=== PATIENT | male | born 1985 | race American Indian/Alaskan Native ===

== ENCOUNTER 2021-07-21 03:52 | Emergency (ER) | payer SELFPAY ==
[2021-07-21 03:58] VITALS: BP 126/83
== END 2021-07-21 09:07 | disposition left against medical advice (07) ==
LOC: ED 03:52
DX: Z00.00 Encounter for general adult medical examination without abnormal findings (principal); Z53.21 Procedure and treatment not carried out due to patient leaving prior to being seen by health care provider

== ENCOUNTER 2021-07-22 04:18 | Emergency (ER) | payer SELFPAY ==
[2021-07-22 04:29] VITALS: BP 160/90
[2021-07-22] MEDS ORDERED: FAMOTIDINE 20 MG TAB PO ONE (04:36)
[2021-07-22] MEDS ORDERED: ONDANSETRON 4 MG ODT TAB PO ONE (04:36)
--- NOTE | 2021-07-22 04:43 | Emergency Department Report ---
ED N/V/D HPI - General Chief complaint: Nausea/Vomiting/Diarrhea Stated complaint: FEELING SICK Source: patient Mode of arrival: Ambulatory Limitations: No Limitations - History of Present Illness Initial comments: Patient is a 35-year-old male who is homeless and with no past medical history, who presented to the ED with complaint of nausea for the last 2 hours. Patient states that he continues to experience a lot of saliva drooling out of his mouth due to persistent nausea. Patient denies vomiting, abdominal pain, diarrhea, dysuria, fever, chills, cough, sore throat, chest pain, dizziness, headache or back pain. MD complaint: nausea -: Sudden, hour(s) (2) Associated Abdominal Pain: No Radiation: none Severity: mild Pain Scale: 1 Quality: dull Consistency: constant Improves with: none Worsens with: none Associated Symptoms: denies other symptoms. denies: myalgias, chest pain, cough, diaphoresis, fever/chills, headaches, loss of appetite, malaise, rash, dysuria, shortness of breath, syncope, other - Related Data Previous Rx's Medication Instructions Recorded Last Taken Type Famotidine [Pepcid] 20 mg PO BID #30 tablet 07/22/21 Unknown Rx Promethazine [Phenergan] 25 mg PO Q8HR PRN #20 tab 07/22/21 Unknown Rx Allergies Allergy/AdvReac Type Severity Reaction Status Date / Time No Known Allergies Allergy Verified 07/21/21 03:57 ED Review of Systems ROS: Stated complaint: FEELING SICK Other details as noted in HPI Constitutional: denies: chills, fever Eyes: denies: eye pain, eye discharge, vision change ENT: denies: ear pain, throat pain Respiratory: denies: cough, shortness of breath, wheezing Cardiovascular: denies: chest pain, palpitations Endocrine: no symptoms reported Gastrointestinal: nausea. denies: abdominal pain, vomiting, diarrhea Genitourinary: denies: urgency, dysuria Musculoskeletal: denies: back pain, joint swelling, arthralgia Skin: denies: rash, lesions Neurological: denies: headache, weakness, paresthesias Psychiatric: denies: anxiety, depression Hematological/Lymphatic: denies: easy bleeding, easy bruising ED Past Medical Hx - Past Medical History Previous Medical History?: No - Surgical History Past Surgical History?: No - Social History Smoking Status: Current Every Day Smoker Substance Use Type: None - Medications Home Medications: Home Medications Medication Instructions Recorded Confirmed Last Taken Type Famotidine [Pepcid] 20 mg PO BID #30 tablet 07/22/21 Unknown Rx Promethazine [Phenergan] 25 mg PO Q8HR PRN #20 tab 07/22/21 Unknown Rx ED Physical Exam - General Limitations: No Limitations General appearance: alert, in no apparent distress - Head Head exam: Present: atraumatic, normocephalic, normal inspection - Eye Eye exam: Present: normal appearance, PERRL, EOMI Pupils: Present: normal accommodation - ENT ENT exam: Present: normal exam, normal orophraynx, mucous membranes moist, TM's normal bilaterally, normal external ear exam - Neck Neck exam: Present: normal inspection, full ROM - Respiratory Respiratory exam: Present: normal lung sounds bilaterally. Absent: respiratory distress, wheezes, rales, rhonchi, chest wall tenderness, accessory muscle use, decreased breath sounds, prolonged expiratory - Cardiovascular Cardiovascular Exam: Present: regular rate, normal rhythm, normal heart sounds. Absent: systolic murmur, diastolic murmur, rubs, gallop - GI/Abdominal GI/Abdominal exam: Present: soft, normal bowel sounds. Absent: tenderness, guarding, rebound, hyperactive bowel sounds, hypoactive bowel sounds, organomegaly - Extremities Exam Extremities exam: Present: normal inspection, full ROM, normal capillary refill - Back Exam Back exam: Present: normal inspection, full ROM - Neurological Exam Neurological exam: Present: alert, oriented X3, CN II-XII intact, normal gait, reflexes normal - Psychiatric Psychiatric exam: Present: normal affect, normal mood - Skin Skin exam: Present: warm, dry, intact, normal color. Absent: rash ED Course Vital Signs 07/22/21 04:24 Temperature 98.4 F Pulse Rate 96 H Respiratory 18 Rate Blood Pressure 160/90 O2 Sat by Pulse 96 Oximetry ED Medical Decision Making - Medical Decision Making This is a 35-year-old male who is homeless and with no past medical history, who presented to the ED with complaint of nausea for the last 2 hours. Patient states that he continues to experience a lot of saliva drooling out of his mouth due to persistent nausea. Patient denies vomiting, abdominal pain, diarrhea, dysuria, fever, chills, cough, sore throat, chest pain, dizziness, headache or back pain. - Differential Diagnosis Viral gastroenteritis; viral syndrome; GERD Critical care attestation.: If time is entered above; I have spent that time in minutes in the direct care of this critically ill patient, excluding procedure time. ED Disposition Clinical Impression: Nausea in adult patient, Acute viral syndrome Disposition: 01 HOME / SELF CARE / HOMELESS Is pt being admited?: No Does the pt Need Aspirin: No Condition: Stable Instructions: Nausea, Adult, [id number], Viral Illness, Adult Additional Instructions: Take medication as needed for nausea and vomiting, drink plenty fluids and follow-up with your primary care physician in 7 to 10 days for reevaluation. Return to the ED immediately if symptoms get worse. Prescriptions: Famotidine [Pepcid] 20 mg PO BID #30 tablet Promethazine [Phenergan] 25 mg PO Q8HR PRN #20 tab PRN Reason: Nausea Referrals: [facility] [Provider Group] - 7-10 days Time of Disposition: 04:42 Print Language: JORDANIAN
== END 2021-07-22 04:58 | disposition home or self-care (01) ==
LOC: ED 04:18
DX: R11.0 Nausea (principal); B34.9 Viral infection, unspecified; F17.200 Nicotine dependence, unspecified, uncomplicated
CPT/HCPCS: 99282; J3490; Q0162

== ENCOUNTER 2021-07-26 05:18 | Emergency (ER) | payer SELFPAY ==
[2021-07-26] MEDS ORDERED: SODIUM CHLORIDE 0.9% 1000 ML 1,000 ML IV ONE (06:33)
[2021-07-26] MEDS ORDERED: ZIPRASIDONE MESYLATE 20 MG VIAL IM PRN (06:40)
[2021-07-26] MEDS ORDERED: diphenhydrAMINE 50 MG/ML VIAL IV ONE (06:42)
--- NOTE | 2021-07-26 06:45 | Emergency Department Report ---
HPI - General Chief Complaint: Anxiety Time Seen by Provider: 07/26/21 06:32 - HPI HPI: MSE 1 The patient is a 35-year-old male present with a chief complaint of paranoia. Patient states she has been paranoid for the past 3 months and also has had emanuel tory and visual hallucinations. Patient states he has a history of PTSD anxiety and depression. Patient was reportedly brought in by warm for cement for his paranoia. Patient denies suicidal homicidal ideation. Patient admits to daily alcohol consumption and cocaine use. When asked what the voices are saying the patient does not respond. When asked what type of visual hallucinations he is having the patient states he sees "black images." ED Past Medical Hx - Past Medical History Previous Medical History?: Yes Hx Psychiatric Treatment: Yes (paranoid, PTSD, anxiety, depression) - Surgical History Past Surgical History?: No Additional Surgical History: Right wrist - Family History Family history: no significant - Social History Smoking Status: Current Every Day Smoker (1/2 pack/day) Substance Use Type: Alcohol (Daily), Cocaine - Medications Home Medications: Home Medications Medication Instructions Recorded Confirmed Last Taken Type Famotidine [Pepcid] 20 mg PO BID #30 tablet 07/22/21 Unknown Rx Promethazine [Phenergan] 25 mg PO Q8HR PRN #20 tab 07/22/21 Unknown Rx ED Review of Systems ROS: Stated complaint: PARANOID Other details as noted in HPI Constitutional: no symptoms reported Eyes: denies: eye pain ENT: denies: throat pain Respiratory: no symptoms reported Cardiovascular: denies: chest pain Endocrine: no symptoms reported Gastrointestinal: denies: abdominal pain Genitourinary: denies: dysuria Musculoskeletal: denies: back pain Neurological: denies: headache Psychiatric: auditory hallucinations, visual hallucinations, other (Paranoia). denies: homicidal thoughts, suicidal thoughts Physical Exam - Physical Exam Vital Signs: Vital Signs 07/26/21 05:41 Temperature 97.9 F Pulse Rate 116 H Respiratory 18 Rate Blood Pressure 164/91 [Right] O2 Sat by Pulse 97 Oximetry Physical Exam: GENERAL: The patient is well-developed well-nourished male sitting in chair not appearing to be in acute distress but anxious and continuing to look out of the door in a paranoid fashion. [] HEENT: Normocephalic. Atraumatic. Extraocular motions are intact. Patient has moist mucous membranes. NECK: Supple. Trachea midline CHEST/LUNGS: Clear to auscultation. There is no respiratory distress noted. HEART/CARDIOVASCULAR: Regular. There is no tachycardia. There is no gallop rub or murmur. ABDOMEN:There is no abdominal distention. SKIN: There is no rash. There is no edema. There is no diaphoresis. NEURO: The patient is awake, alert, and oriented. The patient is cooperative. The patient has no focal neurologic deficits. The patient has normal speech. GCS 15 MUSCULOSKELETAL: There is no evidence of acute injury. ED Course Vital Signs 07/26/21 05:41 Temperature 97.9 F Pulse Rate 116 H Respiratory 18 Rate Blood Pressure 164/91 [Right] O2 Sat by Pulse 97 Oximetry ED Medical Decision Making - Differential Diagnosis Substance abuse, schizophrenia, Critical care attestation.: If time is entered above; I have spent that time in minutes in the direct care of this critically ill patient, excluding procedure time. ED Disposition Condition: Stable
[2021-07-26] MEDS ORDERED: WATER FOR INJ Sterile (PF) 10 ML ONE (07:33)
[2021-07-26 07:49] LABS: Alanine Aminotransferase 14 units/L (7-56); Albumin 3.3 g/dL (3.9-5); BUN/Creatinine Ratio 16; Blood Urea Nitrogen 13 mg/dL (9-20); Calcium 6.3 mg/dL (8.4-10.2); Hemolysis Index 22
[2021-07-26] MEDS ORDERED: POTASSIUM CHLORIDE ER 20 MEQ TAB PO ONE (08:41)
--- NOTE | 2021-07-26 11:19 | Consultation ---
History of Present Illness - Reason for Consult Consult date: 07/26/21 Reason for consult: psychosis - History of Present Psychiatric Illness The patient is a 35y/o male patient who presented to the ER for psychosis; including paranoia and hallucinations. During my evaluation, the patient was able to tell me his name. Other than that, he sort of just moved around and shifted back and forth in between dozing off. The nurse said he had been given Geodon. REVIEW OF SYSTEMS Unable to assess MENTAL STATUS EXAMINATION Unable to assess Assessment (1) Acute Psychosis Current Visit: Yes Status: Acute Treatment Plan 1013 RIsperidone 0.5mg po BID Trazodone 50mg po qhs Agree with prn Geodon order Medical: per primary Disposition: Recommend acute psychiatric inpatient treatment Will follow. Thanks Case staffed with Dr. Hernandez. Medications and Allergies Allergies Allergy/AdvReac Type Severity Reaction Status Date / Time No Known Allergies Allergy Verified 07/21/21 03:57 Home Medications Medication Instructions Recorded Confirmed Last Taken Type Famotidine [Pepcid] 20 mg PO BID #30 tablet 07/22/21 Unknown Rx Promethazine [Phenergan] 25 mg PO Q8HR PRN #20 tab 07/22/21 Unknown Rx Active Meds: Active Medications Ziprasidone (Ziprasidone Mesylate 20 Mg Vial) 10 mg IM Q2H PRN PRN Reason: Agitation Last Admin: 07/26/21 07:41 Dose: 10 mg Mental Status Exam - Vital signs Last Vital Signs Temp 97.9 F 07/26/21 05:41 Pulse 116 H 07/26/21 05:41 Resp 18 07/26/21 05:41 BP 164/91 07/26/21 05:41 Pulse Ox 97 07/26/21 05:41 Results Result Diagrams: 07/26/21 07:24 Abnormal lab results 07/26/21 Range/Units 07:24 Potassium 3.1 L (3.6-5.0) mmol/L Chloride 113.5 H (98-107) mmol/L Carbon Dioxide 15 L (22-30) mmol/L Calcium 6.3 L (8.4-10.2) mg/dL Total Protein 5.7 L (6.3-8.2) g/dL Albumin 3.3 L (3.9-5) g/dL All other labs normal.
[2021-07-26] MEDS: risperiDONE 0.25 MG TAB PO SCH ×2 (11:53→22:45)
[2021-07-26 19:09] LABS: Bilirubin,Urine NEG (Negative); Blood,Urine NEG (Negative); Color,Urine Yellow (Yellow); Mucus,Urine 3+ /HPF; Urobilinogen,Urine < 2.0 mg/dL (<2.0)
[2021-07-26 19:10] LABS: Benzodiazepines Screen,Urine Negative; Methadone Screen,Urine Negative; Opiate Screen,Urine Negative
[2021-07-26 19:32] LABS: Amphetamine Screen,Urine Positive; Cannabinoid Screen,Urine Positive; Cocaine Screen,Urine Positive
[2021-07-26 21:46] VITALS: BP 144/71
[2021-07-26] MEDS ORDERED: traZODone 50 MG TAB PO SCH (22:00)
[2021-07-27 05:15] LABS: Basophils % (Auto) 0.4 % (0.0-1.8); Hematocrit 45.9 % (35.5-45.6); Hemoglobin 15.1 gm/dl (11.8-15.2); Lymphocytes # (Auto) 1.8 K/mm3 (1.2-5.4); Lymphocytes % (Auto) 48.6 % (13.4-35.0); Mean Corpuscular HGB Conc 33 % (32-34); Mean Corpuscular Volume 89 fl (84-94); Monocytes # (Auto) 0.5 K/mm3 (0.0-0.8); Monocytes % (Auto) 13.6 % (0.0-7.3); Platelet Count 233 K/mm3 (140-440); Red Blood Count 5.19 M/mm3 (3.65-5.03); Red Cell Distribution Width 15.3 % (13.2-15.2)
--- NOTE | 2021-07-27 09:50 | Progress Note ---
Subjective - Reason for Consult Consult date: 07/27/21 Reason for consult: SI - Chief Complaint Chief complaint: The patient was seen today. He verbalizes today that he feels good. He says "you want the truth?" The patient says "I was at a alliance party and doing cocaine. I started feeling like people were after me." The patient then says "and meth too." He says "but I'm good now." She denies SI/HI, or any fear of endangerment at present. He says at times he sees "shadows." The patient denies seeing anything that makes him feel threatened in nature. REVIEW OF SYSTEMS Unable to assess MENTAL STATUS EXAMINATION Unable to assess Assessment (1) Acute Psychosis Current Visit: Yes Status: Acute Treatment Plan d/c 1013 RIsperidone 0.5mg po BID Trazodone 50mg po qhs Medical: per primary Disposition: Do not recommend acute psychiatric inpatient treatment. The patient understands that if SI/HI or any fear of endangerment are to arise he is to seek immediate assistance The technology training associate to further discuss safety plan The patient to abstain from all illicit drug use He is to follow up with outpatient psych in 7 to 14 days upon discharge Will sign off. Thanks Case staffed with Dr. Hernandez. Mental Status Exam - Vital signs Last Vital Signs Temp 98.3 F 07/26/21 21:45 Pulse 88 07/26/21 21:45 Resp 18 07/27/21 02:29 BP 144/71 07/26/21 21:45 Pulse Ox 96 07/27/21 02:29
--- NOTE | 2021-07-27 09:59 | Emergency Department Report ---
Blank Doc - Documentation Documentation: This morning, patient is not suicidal or homicidal. There is no evidence of a cute delusion or psychosis. Patient had been medically cleared previously. Patient was seen by psychiatric services. It was not felt that admission to a psychiatric facility was appropriate or indicated. Patient was cleared for discharge. Follow-up with your PCP would be recommended.
== END 2021-07-27 12:20 | disposition home or self-care (01) ==
LOC: ED 05:18
DX: F22 Delusional disorders (principal); Z98.890 Other specified postprocedural states; F17.200 Nicotine dependence, unspecified, uncomplicated
CPT/HCPCS: 36415; 80053; 80307; 81001; 85025; 96372; 96374; 99284; J1200; J3486; J7030; 80320; Q0162; G0480

== ENCOUNTER 2021-09-11 01:56 | Emergency (ER) | payer SELFPAY ==
[2021-09-11] MEDS ORDERED: ZIPRASIDONE MESYLATE 20 MG VIAL IM ONE (02:19)
[2021-09-11 02:53] LABS: Basophils % (Auto) 0.6 % (0.0-1.8); Eosinophils % (Auto) 0.5 % (0.0-4.3); Hematocrit 42.8 % (35.5-45.6); Hemoglobin 14.5 gm/dl (11.8-15.2); Lymphocytes # (Auto) 1.8 K/mm3 (1.2-5.4); Lymphocytes % (Auto) 28.6 % (13.4-35.0); Mean Corpuscular HGB Conc 34 % (32-34); Mean Corpuscular Volume 86 fl (84-94); Monocytes # (Auto) 0.6 K/mm3 (0.0-0.8); Platelet Count 246 K/mm3 (140-440); Red Blood Count 4.98 M/mm3 (3.65-5.03); Red Cell Distribution Width 13.8 % (13.2-15.2)
[2021-09-11] MEDS: diphenhydrAMINE 50 MG/ML VIAL IM ONE ×2 (03:00)
[2021-09-11 03:12] LABS: BUN/Creatinine Ratio 22; Blood Urea Nitrogen 20 mg/dL (9-20); Calcium 9.1 mg/dL (8.4-10.2); Hemolysis Index 38
[2021-09-11] MEDS ORDERED: POTASSIUM CHLORIDE ER 20 MEQ TAB PO ONE ×2 (03:32→22:00)
--- NOTE | 2021-09-11 03:35 | Emergency Department Report ---
ED Psych HPI - General Chief Complaint: Psych Stated Complaint: MEGAN EVAL Time Seen by Provider: 09/11/21 02:18 Source: patient Mode of arrival: Ambulatory Limitations: Other (Psychosis) - History of Present Illness Initial Comments: 35-year-old male the past medical history schizophrenia presents to the hospital complaining of acute psychosis. Patient's been noncompliant with his meds for "a while". Patient appears agitated and responding to internal stimuli. Denies physical complaints. He denies suicidal or homicidal ideation. Patient desires to go to [facility]. Patient initially agitated and somewhat combative and appeared to be noncompliant. He did eventually calm down and agreed to be compliant with blood draw and treatment. - Related Data Previous Rx's Medication Instructions Recorded Last Taken Type Famotidine [Pepcid] 20 mg PO BID #30 tablet 07/22/21 Unknown Rx Promethazine [Phenergan] 25 mg PO Q8HR PRN #20 tab 07/22/21 Unknown Rx risperiDONE [RisperDAL] 0.5 mg PO BID #60 07/27/21 Unknown Rx traZODone [Desyrel] 50 mg PO QHS #30 tab 07/27/21 Unknown Rx Allergies Allergy/AdvReac Type Severity Reaction Status Date / Time No Known Allergies Allergy Verified 07/21/21 03:57 ED Review of Systems ROS: Stated complaint: MH EVAL Other details as noted in HPI Comment: All other systems reviewed and negative ED Past Medical Hx - Past Medical History Hx Psychiatric Treatment: Yes (paranoid, PTSD, anxiety, depression) - Surgical History Additional Surgical History: Right wrist - Social History Smoking Status: Never Smoker Substance Use Type: None - Medications Home Medications: Home Medications Medication Instructions Recorded Confirmed Last Taken Type Famotidine [Pepcid] 20 mg PO BID #30 tablet 07/22/21 Unknown Rx Promethazine [Phenergan] 25 mg PO Q8HR PRN #20 tab 07/22/21 Unknown Rx risperiDONE [RisperDAL] 0.5 mg PO BID #60 07/27/21 Unknown Rx traZODone [Desyrel] 50 mg PO QHS #30 tab 07/27/21 Unknown Rx ED Physical Exam - General Limitations: No Limitations - Other Other exam information: General: No acute distress Head: Atraumatic Eyes: normal appearance ENT: Moist mucous membranes Neck: Normal appearance, no midline tenderness Chest: Clear to auscultation bilaterally CV: Regular rate and rhythm Abdomen: Soft, normal bowel sounds, nontender, nondistended, no rebound or guarding Back: Normal inspection Extremity: Normal inspection, full range of motion Neuro: Alert O x 3, no facial asymmetry, speech clear, no gross motor sensory deficit Psych: Poor eye contact, intermittent in response to questions, responding to internal stimuli Skin: No rash ED Course Vital Signs 09/11/21 02:46 Temperature 98 F Pulse Rate 101 H Respiratory 18 Rate Blood Pressure 135/75 Blood Pressure 135/75 [Left] O2 Sat by Pulse 99 Oximetry ED Medical Decision Making - Lab Data Result diagrams: 09/11/21 02:38 09/11/21 02:38 Lab Results 09/11/21 09/11/21 09/11/21 Range/Units 02:38 02:38 02:38 WBC 6.3 (4.5-11.0) K/mm3 RBC 4.98 (3.65-5.03) M/mm3 Hgb 14.5 (11.8-15.2) gm/dl Hct 42.8 (35.5-45.6) % MCV 86 (84-94) fl MCH 29 (28-32) pg MCHC 34 (32-34) % RDW 13.8 (13.2-15.2) % Plt Count 246 (140-440) K/mm3 Lymph % (Auto) 28.6 (13.4-35.0) % [place] % (Auto) 10.0 H (0.0-7.3) % Eos % (Auto) 0.5 (0.0-4.3) % Baso % (Auto) 0.6 (0.0-1.8) % Lymph # (Auto) 1.8 (1.2-5.4) K/mm3 [place] # (Auto) 0.6 (0.0-0.8) K/mm3 Eos # (Auto) 0.0 (0.0-0.4) K/mm3 Baso # (Auto) 0.0 (0.0-0.1) K/mm3 Seg Neutrophils % 60.3 (40.0-70.0) % Seg Neutrophils # 3.8 (1.8-7.7) K/mm3 Sodium 133 L (137-145) mmol/L Potassium 3.4 L (3.6-5.0) mmol/L Chloride 96.8 L (98-107) mmol/L Carbon Dioxide 23 (22-30) mmol/L Anion Gap 17 mmol/L BUN 20 (9-20) mg/dL Creatinine 0.9 (0.8-1.3) mg/dL Estimated GFR > 60 ml/min BUN/Creatinine Ratio 22 % Glucose 166 H (75-100) mg/dL Calcium 9.1 (8.4-10.2) mg/dL Salicylates < 0.3 L (2.8-20.0) mg/dL Acetaminophen (10.0-30.0) ug/mL Plasma/Serum Alcohol (0-0.07) % 09/11/21 09/11/21 Range/Units 02:38 02:38 WBC (4.5-11.0) K/mm3 RBC (3.65-5.03) M/mm3 Hgb (11.8-15.2) gm/dl Hct (35.5-45.6) % MCV (84-94) fl MCH (28-32) pg MCHC (32-34) % RDW (13.2-15.2) % Plt Count (140-440) K/mm3 Lymph % (Auto) (13.4-35.0) % [place] % (Auto) (0.0-7.3) % Eos % (Auto) (0.0-4.3) % Baso % (Auto) (0.0-1.8) % Lymph # (Auto) (1.2-5.4) K/mm3 [place] # (Auto) (0.0-0.8) K/mm3 Eos # (Auto) (0.0-0.4) K/mm3 Baso # (Auto) (0.0-0.1) K/mm3 Seg Neutrophils % (40.0-70.0) % Seg Neutrophils # (1.8-7.7) K/mm3 Sodium (137-145) mmol/L Potassium (3.6-5.0) mmol/L Chloride (98-107) mmol/L Carbon Dioxide (22-30) mmol/L Anion Gap mmol/L BUN (9-20) mg/dL Creatinine (0.8-1.3) mg/dL Estimated GFR ml/min BUN/Creatinine Ratio % Glucose (75-100) mg/dL Calcium (8.4-10.2) mg/dL Salicylates (2.8-20.0) mg/dL Acetaminophen 5.0 L (10.0-30.0) ug/mL Plasma/Serum Alcohol < 0.01 (0-0.07) % - Medical Decision Making 35year-old male with past medical history of schizophrenia presents to the hospital acute psychosis medication noncompliance. Awaiting mental health evaluation. Mild hypokalemia treated with p.o. potassium. Patient is medically cleared however, awaiting UA collection Critical Care Time: No Critical care attestation.: If time is entered above; I have spent that time in minutes in the direct care of this critically ill patient, excluding procedure time. ED Disposition Clinical Impression: Schizophrenia, Noncompliance with medication regimen, Acute psychosis Disposition: [address] [place] [address] Is pt being admited?: No Condition: Stable Time of Disposition: 05:47
[2021-09-11 07:39] LABS: Bilirubin,Urine NEG (Negative); Blood,Urine SM (Negative); Color,Urine Yellow (Yellow); Protein,Urine <15 mg/dL mg/dL (Negative)
[2021-09-11 07:47] LABS: Benzodiazepines Screen,Urine Negative; Methadone Screen,Urine Negative; Opiate Screen,Urine Negative
[2021-09-11 07:52] LABS: RBC,Urine < 1.0 /HPF (0.0-6.0); WBC,Urine < 1.0 /HPF (0.0-6.0)
[2021-09-11 08:10] LABS: Amphetamine Screen,Urine Positive; Cannabinoid Screen,Urine Positive; Cocaine Screen,Urine Positive
--- NOTE | 2021-09-11 10:29 | Consultation ---
History of Present Illness - Reason for Consult Consult date: 09/11/21 Reason for consult: suicidal - History of Present Psychiatric Illness The patient is a 35 year old male with history of PTSD, schizophrenia. In my interview with the patient, he is calm and paranoid. The patient states that " I feel like people are out to get me." He admits having suicidal thoughts, when asked about his plan he states " get over with it. " The patient endorses auditory and visual hallucinations " voices are saying different things and I see shadow." Diagnoses: PTSD, schizophrenia Suicide attempts or Self-harm behavior: Yes Prior psychiatric hospitalizations: Yes Substance Abuse history: Cocaine Previous psychiatric medications tried:Xanax Risperidone, Seroquel Outpatient treatment: Unknown PAST MEDICAL HISTORY: unknown Family Psychiatric History: None reported or documented SOCIAL HISTORY Marital Status: Single Living Arrangements: Homeless Employment Status: unemployed Access to guns/weapons: Denies Education: 11th grade History of Abuse: none reported Legal History: none reported REVIEW OF SYSTEMS Constitutional: Negative for weight loss ENT: Negative for stridor Respiratory: Negative for cough or hemoptysis All other systems reviewed and are negative MENTAL STATUS EXAMINATION General Appearance and Behavior: Age appropriate, good hygiene, wearing appropriate clothes, calm, cooperative Cooperation: Participating/engaged Psychomotor Behavior: Normal Mood: depressed Affect and affective range: congruent with mood Thought Process: Circumstantial Thought Content: Paranoid Speech: Normal Suicidal Ideation: Yes Homicidal Ideation: Denies Hallucinations: Auditory/visual Delusions: None Impulse Control: Normal Insight and Judgment: Limited insight and judgment, Memory: Normal Attention: Divided Orientation: Alert, oriented Assessment and Plan (1)Schizophrenia Current Visit: Yes Status: Acute Treatment Plan 1013 Seroquel 25mg po BID Seroquel 50mg po QHS The patient needs to follow up with his outpatient psychiatrist and therapist. Continue home meds Disposition: Recommend psychiatric inpatient admission at this time. Will follow. Thanks Case staffed with Dr. Hernandez Medications and Allergies Medications and Allergies Allergies Allergy/AdvReac Type Severity Reaction Status Date / Time No Known Allergies Allergy Verified 07/21/21 03:57 Home Medications Medication Instructions Recorded Confirmed Last Taken Type Famotidine [Pepcid] 20 mg PO BID #30 tablet 07/22/21 Unknown Rx Promethazine [Phenergan] 25 mg PO Q8HR PRN #20 tab 07/22/21 Unknown Rx risperiDONE [RisperDAL] 0.5 mg PO BID #60 07/27/21 Unknown Rx traZODone [Desyrel] 50 mg PO QHS #30 tab 07/27/21 Unknown Rx Mental Status Exam - Vital signs Last Vital Signs Temp 98 F 09/11/21 02:46 Pulse 101 H 09/11/21 02:46 Resp 18 09/11/21 02:46 BP 135/75 09/11/21 02:46 Pulse Ox 99 09/11/21 02:46 Results Result Diagrams: 09/11/21 02:38 09/11/21 02:38 Abnormal lab results 09/11/21 09/11/21 09/11/21 Range/Units 02:38 02:38 02:38 [place] % (Auto) 10.0 H (0.0-7.3) % Sodium 133 L (137-145) mmol/L Potassium 3.4 L (3.6-5.0) mmol/L Chloride 96.8 L (98-107) mmol/L Glucose 166 H (75-100) mg/dL Salicylates < 0.3 L (2.8-20.0) mg/dL Acetaminophen (10.0-30.0) ug/mL 09/11/21 Range/Units 02:38 [place] % (Auto) (0.0-7.3) % Sodium (137-145) mmol/L Potassium (3.6-5.0) mmol/L Chloride (98-107) mmol/L Glucose (75-100) mg/dL Salicylates (2.8-20.0) mg/dL Acetaminophen 5.0 L (10.0-30.0) ug/mL All other labs normal.
[2021-09-11] MEDS: QUEtiapine 25 MG TAB PO SCH ×2 (11:10→14:00)
--- NOTE | 2021-09-11 11:12 | Event Note ---
Date: 09/11/21 vss, no distress , no events overnight medically cleared psych assessed recommends psych inpatient continue 1016
[2021-09-11 14:36] LABS: BUN/Creatinine Ratio 17; Blood Urea Nitrogen 15 mg/dL (9-20); Calcium 8.9 mg/dL (8.4-10.2); Hemolysis Index 5
[2021-09-12] MEDS: QUEtiapine 25 MG TAB PO SCH ×4 (00:15→23:00)
--- NOTE | 2021-09-12 09:03 | Progress Note ---
Subjective - Reason for Consult Consult date: 09/12/21 Reason for consult: suicidal ideation - Chief Complaint Chief complaint: The patient was seen this morning. he reports doing well. He reports sleep and appetite as good. The patient denies any current suicidal/homicidal ideation and denies hallucinations. REVIEW OF SYSTEMS Constitutional: Negative for weight loss ENT: Negative for stridor Respiratory: Negative for cough or hemoptysis All other systems reviewed and are negative MENTAL STATUS EXAMINATION General Appearance and Behavior: Age appropriate, good hygiene, wearing appropriate clothes, calm, cooperative Cooperation: Participating/engaged Psychomotor Behavior: Normal Mood: "ok" Affect and affective range: congruent with mood Thought Process: goal oriented Thought Content:Reality oriented Speech: Normal Suicidal Ideation: Denies Homicidal Ideation: Denies Hallucinations: Auditory/visual Delusions: None Impulse Control: Normal Insight and Judgment: Limited insight and judgment, Memory: Normal Attention: Divided Orientation: Alert, oriented Assessment and Plan (1)Schizophrenia Current Visit: Yes Status: Acute Treatment Plan DC 1013 Seroquel 25mg po BID Seroquel 50mg po QHS The patient needs to follow up with his outpatient psychiatrist and therapist. Continue home meds Disposition:Do not recommend psychiatric inpatient admission at this time. Injection Mold Tooling Technician will provide patient with psychiatric outpatient resources and safety plan. Will sign off. Thanks Case staffed with Dr. Hernandez Medications and Allergies Mental Status Exam - Vital signs Last Vital Signs Temp 98.5 F 09/11/21 20:28 Pulse 68 09/11/21 20:28 Resp 16 09/11/21 20:28 BP 108/66 09/11/21 20:28 Pulse Ox 96 09/11/21 20:28
[2021-09-13] MEDS: QUEtiapine 25 MG TAB PO SCH ×2 (09:17→12:03)
--- NOTE | 2021-09-13 10:09 | Progress Note ---
Subjective - Reason for Consult Consult date: 09/13/21 Reason for consult: suicidal ideation - Chief Complaint Chief complaint: The patient was seen this morning. He reports doing well. The patient continues to endorses depression and states he does not feel safe. REVIEW OF SYSTEMS Constitutional: Negative for weight loss ENT: Negative for stridor Respiratory: Negative for cough or hemoptysis All other systems reviewed and are negative MENTAL STATUS EXAMINATION General Appearance and Behavior: Age appropriate, good hygiene, wearing appropriate clothes, calm, cooperative Cooperation: Participating/engaged Psychomotor Behavior: Normal Mood: depressed Affect and affective range: congruent with mood Thought Process: goal oriented Thought Content:Reality oriented Speech: Normal Suicidal Ideation: Denies Homicidal Ideation: Denies Hallucinations: Denies Delusions: None Impulse Control: Normal Insight and Judgment: Limited insight and judgment, Memory: Normal Attention: Divided Orientation: Alert, oriented Assessment and Plan (1)Schizophrenia Current Visit: Yes Status: Acute Treatment Plan DC 1013 Seroquel 25mg po BID Seroquel 50mg po QHS The patient needs to follow up with his outpatient psychiatrist and therapist. Continue home meds Disposition:Do not recommend psychiatric inpatient admission at this time. Will follow. Thanks Case staffed with Dr. Hernandez Medications and Allergies Mental Status Exam - Vital signs Last Vital Signs Temp 98.4 F 09/12/21 19:58 Pulse 78 09/12/21 19:58 Resp 18 09/12/21 19:58 BP 133/75 09/12/21 19:58 Pulse Ox 100 09/12/21 19:58
--- NOTE | 2021-09-13 16:03 | Emergency Department Report ---
Blank Doc - Documentation Documentation: 35-year-old male with acute psychosis and suicidal ideation with recommendation to continue 1013 and transfer to psychiatric hospital. Patient accepted and awaiting transport
[2021-09-13 23:00] VITALS: BP 102/83
== END 2021-09-14 03:38 ==
LOC: EEVIPCON 01:56 → ED 01:56
DX: F20.9 Schizophrenia, unspecified (principal); Z20.822 Contact with and (suspected) exposure to COVID-19; Z91.14 Patient's other noncompliance with medication regimen; F41.9 Anxiety disorder, unspecified; F32.9 Major depressive disorder, single episode, unspecified; Z79.899 Other long term (current) drug therapy
CPT/HCPCS: 36415; 80048; 80307; 81001; 85025; 99285; U0003; 80320; G0480